=== PATIENT | male | born 1970 | race Caucasian/White ===

== ENCOUNTER 2016-06-22 12:21 | Emergency (ER) | payer OTHER ==
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
--- NOTE | 2016-06-30 01:57 | ED MAR SUMMARY ---
..... Medication Administration Record [facility] [address] [place], [place] [id number] Patient: JALEEL MONTOYA Visit ID: [id number] 46y, M Weight: 99.7 kg Height/Length: 72 in BMI: 29.8 ALLERGIES: No Known Drug Allergy
--- NOTE | 2016-06-30 01:57 | ED MAR SUMMARY ---
..... Medication Administration Record [facility] [address] [place], [place] [id number] Patient: JALEEL MONTOYA Visit ID: [id number] 46y, M Weight: 99.7 kg Height/Length: 72 in BMI: 29.8 ALLERGIES: No Known Drug Allergy
--- NOTE | 2016-06-30 01:57 | ED DISCHARGE INSTRUCTIONS ---
Patient: JALEEL MONTOYA General Instructions [facility] VisitID: [id number] [address], [place] [address] 46y, M Registration Date/Time: 06/22/2016 Chronic traumatic back pain. INSTRUCTIONS No driving or operating machinery while taking medication. No strenuous activity. Warnings: GENERAL WARNINGS: Return or contact your physician immediately if your condition worsens or changes unexpectedly, if not improving as expected, or if other problems arise. Prescription Medications: Ultram 50 mg: take 1-2 orally every 6 hours as needed for pain. Dispense five (5). Substitution is permissible. Follow-up: Follow up with your doctor internal specialist tomorrow. Call for the next available appointment. Understanding of the discharge instructions verbalized by patient and family. Follow-up with: [facility], , , [address], , [place], [address] Follow up in three days. Call for an appointment. ADDITIONAL INFORMATION Back Pain [Acute Or Chronic] Back pain is usually caused by an injury to the muscles or ligaments of the spine. Sometimes the disks that separate each bone in the spine may bulge and cause pain by pressing on a nearby nerve. Back pain may also appear after a sudden twisting/bending force (such as in a car accident), after a simple awkward movement, or lifting something heavy with poor body positioning. In either case, muscle spasm is often present and adds to the pain. Acute back pain usually gets better in one to two weeks. Back pain related to disk disease, arthritis in the spinal joints or spinal stenosis (narrowing of the spinal canal) can become chronic and last for months or years. Unless you had a physical injury (for example, a car accident or fall) X-rays are usually not ordered for the initial evaluation of back pain. If pain continues and does not respond to medical treatment, x-rays and other tests may be performed at a later time. Home Care: You may need to stay in bed the first few days. But, as soon as possible, begin sitting or walking to avoid problems with prolonged bed rest (muscle weakness, worsening back stiffness and pain, blood clots in the legs). When in bed, try to find a position of comfort. A firm mattress is best. Try lying flat on your back with pillows under your knees. You can also try lying on your side with your knees bent up towards your chest and a pillow between your knees. Avoid prolonged sitting. This puts more stress on the lower back than standing or walking. During the first two days after injury, apply an ICE PACK to the painful area for 20 minutes every 2-4 hours. This will reduce swelling and pain. HEAT (hot shower, hot bath or heating pad) works well for muscle spasm. You can start with ice, then switch to heat after two days. Some patients feel best alternating ice and heat treatments. Use the one method that feels the best to you. You may use acetaminophen (Tylenol) or ibuprofen (Motrin, Advil) to control pain, unless another pain medicine was prescribed. [NOTE: If you have chronic liver or kidney disease or ever had a stomach ulcer or GI bleeding, talk with your doctor before using these medicines.] Be aware of safe lifting methods and do not lift anything over 15 pounds until all the pain is gone. Follow Up with your doctor or this facility if your symptoms do not start to improve after one week. Physical therapy may be needed. [NOTE: If X-rays were taken, they will be reviewed by a radiologist. You will be notified of any new findings that may affect your care.] Get Prompt Medical Attention if any of the following occur: Pain becomes worse or spreads to your legs Weakness or numbness in one or both legs Loss of bowel or bladder control Numbness in the groin or genital area You have been given the following additional information: Back Pain (Acute Or Chronic) No driving or operating machinery while taking medication. No strenuous activity. (Electronically signed by Arpan Brown MD 06/30/2016 1:57)
--- NOTE | 2016-06-30 01:57 | ED MED RECONCILIATION SUMMARY ---
Patient: JALEEL MONTOYA Medication Reconciliation Report [facility] VisitID: [id number] [address] [place] [address] 46y, M Registration Date/Time: 06/22/2016 Weight: 99.7 kg Height/Length: 72 in. BMI: 29.8 ALLERGIES: No Known Drug Allergy The patient's Home Medications are listed below: Not obtained. The source(s) of the original Home Medication information: patient The following Medications were given to the patient in the Emergency Department: None. The following Medications were prescribed to the patient: Ultram 50 mg: take 1-2 orally every 6 hours as needed for pain. Dispense five (5). Substitution is permissible. -- Arpan Brown MD
--- NOTE | 2016-06-30 01:57 | ED DISCHARGE INSTRUCTIONS ---
Patient: JALEEL MONTOYA General Instructions [facility] VisitID: [id number] [address], [place] [address] 46y, M Registration Date/Time: 06/22/2016 Chronic traumatic back pain. INSTRUCTIONS No driving or operating machinery while taking medication. No strenuous activity. Warnings: GENERAL WARNINGS: Return or contact your physician immediately if your condition worsens or changes unexpectedly, if not improving as expected, or if other problems arise. Prescription Medications: Ultram 50 mg: take 1-2 orally every 6 hours as needed for pain. Dispense five (5). Substitution is permissible. Follow-up: Follow up with your doctor television specialist tomorrow. Call for the next available appointment. Understanding of the discharge instructions verbalized by patient and family. Follow-up with: [facility], , , [address], , [place], [address] Follow up in three days. Call for an appointment. ADDITIONAL INFORMATION Back Pain [Acute Or Chronic] Back pain is usually caused by an injury to the muscles or ligaments of the spine. Sometimes the disks that separate each bone in the spine may bulge and cause pain by pressing on a nearby nerve. Back pain may also appear after a sudden twisting/bending force (such as in a car accident), after a simple awkward movement, or lifting something heavy with poor body positioning. In either case, muscle spasm is often present and adds to the pain. Acute back pain usually gets better in one to two weeks. Back pain related to disk disease, arthritis in the spinal joints or spinal stenosis (narrowing of the spinal canal) can become chronic and last for months or years. Unless you had a physical injury (for example, a car accident or fall) X-rays are usually not ordered for the initial evaluation of back pain. If pain continues and does not respond to medical treatment, x-rays and other tests may be performed at a later time. Home Care: You may need to stay in bed the first few days. But, as soon as possible, begin sitting or walking to avoid problems with prolonged bed rest (muscle weakness, worsening back stiffness and pain, blood clots in the legs). When in bed, try to find a position of comfort. A firm mattress is best. Try lying flat on your back with pillows under your knees. You can also try lying on your side with your knees bent up towards your chest and a pillow between your knees. Avoid prolonged sitting. This puts more stress on the lower back than standing or walking. During the first two days after injury, apply an ICE PACK to the painful area for 20 minutes every 2-4 hours. This will reduce swelling and pain. HEAT (hot shower, hot bath or heating pad) works well for muscle spasm. You can start with ice, then switch to heat after two days. Some patients feel best alternating ice and heat treatments. Use the one method that feels the best to you. You may use acetaminophen (Tylenol) or ibuprofen (Motrin, Advil) to control pain, unless another pain medicine was prescribed. [NOTE: If you have chronic liver or kidney disease or ever had a stomach ulcer or GI bleeding, talk with your doctor before using these medicines.] Be aware of safe lifting methods and do not lift anything over 15 pounds until all the pain is gone. Follow Up with your doctor or this facility if your symptoms do not start to improve after one week. Physical therapy may be needed. [NOTE: If X-rays were taken, they will be reviewed by a radiologist. You will be notified of any new findings that may affect your care.] Get Prompt Medical Attention if any of the following occur: Pain becomes worse or spreads to your legs Weakness or numbness in one or both legs Loss of bowel or bladder control Numbness in the groin or genital area You have been given the following additional information: Back Pain (Acute Or Chronic) No driving or operating machinery while taking medication. No strenuous activity. (Electronically signed by Arpan Brown MD 06/30/2016 1:57)
--- NOTE | 2016-06-30 01:57 | ED MED RECONCILIATION SUMMARY ---
Patient: JALEEL MONTOYA Medication Reconciliation Report [facility] VisitID: [id number] [address] [place] [address] 46y, M Registration Date/Time: 06/22/2016 Weight: 99.7 kg Height/Length: 72 in. BMI: 29.8 ALLERGIES: No Known Drug Allergy The patient's Home Medications are listed below: Not obtained. The source(s) of the original Home Medication information: patient The following Medications were given to the patient in the Emergency Department: None. The following Medications were prescribed to the patient: Ultram 50 mg: take 1-2 orally every 6 hours as needed for pain. Dispense five (5). Substitution is permissible. -- Arpan Brown MD
== END 2016-06-22 13:26 | disposition home or self-care (01) ==
LOC: ED SRH 12:21
DX: M54.5 Low back pain (principal); G89.21 Chronic pain due to trauma; F17.210 Nicotine dependence, cigarettes, uncomplicated

== ENCOUNTER 2016-12-06 19:35 | Emergency (ER) | payer SELFPAY ==
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
--- NOTE | 2016-12-06 21:56 | ED ORDER SUMMARY ---
..... Patient: JALEEL MONTOYA OrderSheet [facility] VisitID: [id number] [address] [place] [address] 46y, M Registration Date/Time: 12/06/2016 ORDER SHEET Weight: 99.7 kg (stated) Allergies: No Known Drug Allergy GENERAL ORDERS: Shoulder 2V or more Left Urgent (19:58 12/06/2016 Naveed Miner) (Ack 20:04 IJurca ER Tech1) (20:25 MCampbell) Finger Right (1st) Urgent (19:59 12/06/2016 Naveed Miner) (Ack 20:04 IJurca ER Tech1) (20:25 MCampbell) Sling - arm (21:56 12/06/2016 Naveed Miner) (Ack 21:58 IJurca ER Tech1) Splint (UE) (Right) (Thumb Spica) (21:57 12/06/2016 Naveed Miner) (Ack 21:58 IJurca ER Tech1) MEDICATION ORDERS: Morphine IM 4 mg (HIGH ALERT MEDICATION, NOW) (19:58 12/06/2016 Naveed Miner) (Ack 19:59 Bambi R.N.) (20:07 Bambi R.N.) Tdap IM 0.5 mL (NOW, per protocol) (19:59 12/06/2016 Naveed Miner) (Ack 19:59 Bambi R.N.) (20:03 Bambi R.N.) Famotidine PO 40 mg (NOW) (21:02 12/06/2016 Naveed Miner) (Ack 21:03 Bambi R.N.) (21:06 Bambi R.N.) IV FLUIDS: ORDER SHEET NOTES: [Electronically signed by Narinder Morillo R.N. (22:35 12/06/2016)] [Electronically signed by Steve Dodge Dr. (00:30 12/08/2016)] [Electronically locked/signed by Narinder Morillo R.N. (22:35 12/06/2016)]
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
--- NOTE | 2016-12-06 21:56 | ED ORDER SUMMARY ---
..... Patient: JALEEL MONTOYA OrderSheet [facility] VisitID: [id number] [address] [place] [address] 46y, M Registration Date/Time: 12/06/2016 ORDER SHEET Weight: 99.7 kg (stated) Allergies: No Known Drug Allergy GENERAL ORDERS: Shoulder 2V or more Left Urgent (19:58 12/06/2016 Naveed Miner) (Ack 20:04 IJurca ER Tech1) (20:25 MCampbell) Finger Right (1st) Urgent (19:59 12/06/2016 Naveed Miner) (Ack 20:04 IJurca ER Tech1) (20:25 MCampbell) Sling - arm (21:56 12/06/2016 Naveed Miner) (Ack 21:58 IJurca ER Tech1) Splint (UE) (Right) (Thumb Spica) (21:57 12/06/2016 Naveed Miner) (Ack 21:58 IJurca ER Tech1) MEDICATION ORDERS: Morphine IM 4 mg (HIGH ALERT MEDICATION, NOW) (19:58 12/06/2016 Naveed Miner) (Ack 19:59 Bambi R.N.) (20:07 Bambi R.N.) Tdap IM 0.5 mL (NOW, per protocol) (19:59 12/06/2016 Naveed Miner) (Ack 19:59 Bambi R.N.) (20:03 Bambi R.N.) Famotidine PO 40 mg (NOW) (21:02 12/06/2016 Naveed Miner) (Ack 21:03 Bambi R.N.) (21:06 Bambi R.N.) IV FLUIDS: ORDER SHEET NOTES: [Electronically signed by Narinder Morillo R.N. (22:35 12/06/2016)] [Electronically signed by Steve Dodge Dr. (00:30 12/08/2016)] [Electronically locked/signed by Narinder Morillo R.N. (22:35 12/06/2016)]
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
--- NOTE | 2016-12-08 00:31 | ED MAR SUMMARY ---
..... Medication Administration Record [facility] [address] [place] [address] Patient: JALEEL MONTOYA Visit ID: [id number] 46y, M Weight: 99.7 kg Height/Length: 72 in BMI: 29.8 ALLERGIES: No Known Drug Allergy Given 20:03 12/06/2016 Narinder Morillo R.N. Medication Administered: TDAP [IM], Dose: 0.5 mL IM. Medication Ordered: Tdap IM 0.5 mL (NOW, per protocol). Given 20:12/06/2016 Narinder Morillo R.NEddie Medication Administered: MORPHINE [IM] (MORPHINE SULFATE (PF)), Dose: 4 mg IM. Medication Ordered: Morphine IM 4 mg (HIGH ALERT MEDICATION, NOW). Given 21:06 12/06/2016 Narinder Morillo REddieNEddie Medication Administered: FAMOTIDINE [PO], Dose: 40 mg Tablets PO. Medication Ordered: Famotidine PO 40 mg (NOW).
--- NOTE | 2016-12-08 00:31 | ED DISCHARGE INSTRUCTIONS ---
Patient: JALEEL MONTOYA General Instructions [facility] VisitID: [id number] [address] [place] [address] 46y, M Registration Date/Time: 12/06/2016 Closed nondisplaced proximal and distal phalanx fracture of the right thumb. Single contusion with abrasion to the left shoulder. INSTRUCTIONS Limit use of your right hand until released. Do not work until released. Your Current Medications: CONTINUE TAKING THE FOLLOWING MEDICATIONS: None*. Prescription Medications: Hydrocodone/APAP 5mg / 325mg: take 1-2 orally every 6 hours as needed for pain. Dispense fifteen (15). No refill. Follow-up: Screening today revealed the patient's blood pressure to be in the pre-hypertensive range. The patient should follow up with a primary care provider for blood pressure management. Follow-up with: [facility], , [address], , [place], [address] Follow up in about one day. Call for an appointment. ADDITIONAL INFORMATION Contusion,Soft Tissue You have a CONTUSION, which is a bruise with swelling and some bleeding under the skin. There are no broken bones. This injury takes a few days to a few weeks to heal. Home Care: 1) Keep the injured part elevated to reduce pain and swelling. This is especially important during the first 48 hours. 2) Make an ice pack (ice cubes in a plastic bag, wrapped in a towel) and apply for 20 minutes every 1-2 hours the first day. Continue this 3-4 times a day until the pain and swelling goes away. 3) You may use acetaminophen (Tylenol) or ibuprofen (Motrin, Advil) to control pain, unless another pain medicine was prescribed. [ NOTE : If you have chronic liver or kidney disease or ever had a stomach ulcer or GI bleeding, talk with your doctor before using these medicines.] Follow Up with your doctor or this facility if you are not improving within the next THREE days. [NOTE: If X-rays were taken, they will be reviewed by a radiologist. You will be notified of any new findings that may affect your care.] Get Prompt Medical Attention if any of the following occur: -- Pain or swelling increases -- Injured arm or leg becomes cold, blue, numb or tingly -- Redness, warmth or drainage from the skin Fracture:Thumb [Closed] You have fractured (broken) your thumb. This causes local pain, swelling and sometimes bruising. This injury will take about four weeks to heal. Thumb fractures may be treated with a splint or cast. This protects the thumb and holds the bone in place while it heals. More serious fractures may require surgery. If the thumb nail has been severely injured, it may fall off in 1-2 weeks. A new thumb nail will usually start to grow back within a month. Home Care: 1) Keep your arm elevated to reduce pain and swelling. When sitting or lying down elevate your arm above the level of your heart. You can do this by placing your arm on a pillow that rests on your chest or on a pillow at your side. This is most important during the first 48 hours after injury. 2) Apply an ice pack (ice cubes in a plastic bag, wrapped in a towel) over the injured area for 20 minutes every 1-2 hours the first day. Continue with ice packs 3-4 times a day for the next two days, then as needed for the relief of pain and swelling. 3) If a SPLINT was applied, leave this in place for the time advised. This will prevent the bones from moving out of position. 4) Keep the cast/splint completely dry at all times. Bathe with your cast/splint out of the water, protected with a large plastic bag, rubber-banded at the top end. If a fiberglass cast/splint gets wet, you can dry it with a hair-dryer. 5) You may use acetaminophen (Tylenol) or ibuprofen (Motrin, Advil) to control pain, unless another pain medicine was prescribed. [ NOTE : If you have chronic liver or kidney disease or ever had a stomach ulcer or GI bleeding, talk with your doctor before using these medicines.] Follow Up with your doctor in one week, or as advised by our staff, to be sure the bone is healing properly. Talk to your doctor about when it is safe to return to sports or work activity. [NOTE: Any X-rays taken will be reviewed by a radiologist. You will be notified of any new findings that may affect your care.] Get Prompt Medical Attention if any of the following occur: -- The plaster cast or splint becomes wet or soft -- The fiberglass cast or splint remains wet for more than 24 hours -- Pain or swelling increases -- Redness or warmth in the hand -- Fingers or hand become cold, blue, numb or tingly Hydrocodone Bitartrate, Acetaminophen Oral tablet What is this medicine? ACETAMINOPHEN; HYDROCODONE (a set a NADEEM christina fen; jesse droe KOE done) is a pain reliever. It is used to treat mild to moderate pain. How should I use this medicine? Take this medicine by mouth. Swallow it with a full glass of water. Follow the directions on the prescription label. If the medicine upsets your stomach, take the medicine with food or milk. Do not take more than you are told to take. Talk to your data reduction technician regarding the use of this medicine in children. This medicine is not approved for use in children. What side effects may I notice from receiving this medicine? Side effects that you should report to your doctor or health pulmonary care nurse as soon as possible: allergic reactions like skin rash, itching or hives, swelling of the face, lips, or tongue breathing problems confusion feeling faint or lightheaded, falls stomach pain yellowing of the eyes or skin Side effects that usually do not require medical attention (report to your doctor or health pulmonary care nurse if they continue or are bothersome): nausea, vomiting stomach upset What may interact with this medicine? alcohol antihistamines isoniazid medicines for depression, anxiety, or psychotic disturbances medicines for sleep muscle relaxants naltrexone narcotic medicines (opiates) for pain phenobarbital ritonavir tramadol What if I miss a dose? If you miss a dose, take it as soon as you can. If it is almost time for your next dose, take only that dose. Do not take double or extra doses. Where should I keep my medicine? Keep out of the reach of children. This medicine can be abused. Keep your medicine in a safe place to protect it from theft. Do not share this medicine with anyone. Selling or giving away this medicine is dangerous and against the law. Store at room temperature between 15 and 30 degrees C (59 and 86 degrees F). Protect from light. Keep container tightly closed. Throw away any unused medicine after the expiration date. Discard unused medicine and used packaging carefully. Pets and children can be harmed if they find used or lost packages. What should I tell my health care provider before I take this medicine? They need to know if you have any of these conditions: brain tumor Crohn's disease, inflammatory bowel disease, or ulcerative colitis drink more than 3 alcohol-containing drinks per day drug abuse or addiction head injury heart or circulation problems kidney disease or problems going to the bathroom liver disease lung disease, asthma, or breathing problems an unusual or allergic reaction to acetaminophen, hydrocodone, other opioid analgesics, other medicines, foods, dyes, or preservatives or trying to get breast-feeding What should I watch for while using this medicine? Tell your doctor or health pulmonary care nurse if your pain does not go away, if it gets worse, or if you have new or a different type of pain. You may develop tolerance to the medicine. Tolerance means that you will need a higher dose of the medicine for pain relief. Tolerance is normal and is expected if you take the medicine for a long time. Do not suddenly stop taking your medicine because you may develop a severe reaction. Your body becomes used to the medicine. This does NOT mean you are addicted. Addiction is a behavior related to getting and using a drug for a non-medical reason. If you have pain, you have a medical reason to take pain medicine. Your doctor will tell you how much medicine to take. If your doctor wants you to stop the medicine, the dose will be slowly lowered over time to avoid any side effects. You may get drowsy or dizzy when you first start taking the medicine or change doses. Do not drive, use machinery, or do anything that may be dangerous until you know how the medicine affects you. Stand or sit up slowly. There are different types of narcotic medicines (opiates) for pain. If you take more than one type at the same time, you may have more side effects. Give your health care provider a list of all medicines you use. Your doctor will tell you how much medicine to take. Do not take more medicine than directed. Call emergency for help if you have problems breathing. The medicine will cause constipation. Try to have a bowel movement at least every 2 to 3 days. If you do not have a bowel movement for 3 days, call your doctor or health pulmonary care nurse. Too much acetaminophen can be very dangerous. Do not take Tylenol (acetaminophen) or medicines that contain acetaminophen with this medicine. Many non-prescription medicines contain acetaminophen. Always read the labels carefully. You have been given the following additional information: Contusion, Soft Tissue Fracture, Thumb Hydrocodone Bitartrate, Acetaminophen Oral tablet Limit use of your right hand until released. Do not work until released. (Electronically signed by Steve Dodge Dr. 12/08/2016 0:30)
--- NOTE | 2016-12-08 00:31 | ED DISCHARGE INSTRUCTIONS ---
Patient: JALEEL MONTOYA General Instructions [facility] VisitID: [id number] [address] [place] [address] 46y, M Registration Date/Time: 12/06/2016 Closed nondisplaced proximal and distal phalanx fracture of the right thumb. Single contusion with abrasion to the left shoulder. INSTRUCTIONS Limit use of your right hand until released. Do not work until released. Your Current Medications: CONTINUE TAKING THE FOLLOWING MEDICATIONS: None*. Prescription Medications: Hydrocodone/APAP 5mg / 325mg: take 1-2 orally every 6 hours as needed for pain. Dispense fifteen (15). No refill. Follow-up: Screening today revealed the patient's blood pressure to be in the pre-hypertensive range. The patient should follow up with a primary care provider for blood pressure management. Follow-up with: [facility], , [address], , [place], [address] Follow up in about one day. Call for an appointment. ADDITIONAL INFORMATION Contusion,Soft Tissue You have a CONTUSION, which is a bruise with swelling and some bleeding under the skin. There are no broken bones. This injury takes a few days to a few weeks to heal. Home Care: 1) Keep the injured part elevated to reduce pain and swelling. This is especially important during the first 48 hours. 2) Make an ice pack (ice cubes in a plastic bag, wrapped in a towel) and apply for 20 minutes every 1-2 hours the first day. Continue this 3-4 times a day until the pain and swelling goes away. 3) You may use acetaminophen (Tylenol) or ibuprofen (Motrin, Advil) to control pain, unless another pain medicine was prescribed. [ NOTE : If you have chronic liver or kidney disease or ever had a stomach ulcer or GI bleeding, talk with your doctor before using these medicines.] Follow Up with your doctor or this facility if you are not improving within the next THREE days. [NOTE: If X-rays were taken, they will be reviewed by a radiologist. You will be notified of any new findings that may affect your care.] Get Prompt Medical Attention if any of the following occur: -- Pain or swelling increases -- Injured arm or leg becomes cold, blue, numb or tingly -- Redness, warmth or drainage from the skin Fracture:Thumb [Closed] You have fractured (broken) your thumb. This causes local pain, swelling and sometimes bruising. This injury will take about four weeks to heal. Thumb fractures may be treated with a splint or cast. This protects the thumb and holds the bone in place while it heals. More serious fractures may require surgery. If the thumb nail has been severely injured, it may fall off in 1-2 weeks. A new thumb nail will usually start to grow back within a month. Home Care: 1) Keep your arm elevated to reduce pain and swelling. When sitting or lying down elevate your arm above the level of your heart. You can do this by placing your arm on a pillow that rests on your chest or on a pillow at your side. This is most important during the first 48 hours after injury. 2) Apply an ice pack (ice cubes in a plastic bag, wrapped in a towel) over the injured area for 20 minutes every 1-2 hours the first day. Continue with ice packs 3-4 times a day for the next two days, then as needed for the relief of pain and swelling. 3) If a SPLINT was applied, leave this in place for the time advised. This will prevent the bones from moving out of position. 4) Keep the cast/splint completely dry at all times. Bathe with your cast/splint out of the water, protected with a large plastic bag, rubber-banded at the top end. If a fiberglass cast/splint gets wet, you can dry it with a hair-dryer. 5) You may use acetaminophen (Tylenol) or ibuprofen (Motrin, Advil) to control pain, unless another pain medicine was prescribed. [ NOTE : If you have chronic liver or kidney disease or ever had a stomach ulcer or GI bleeding, talk with your doctor before using these medicines.] Follow Up with your doctor in one week, or as advised by our staff, to be sure the bone is healing properly. Talk to your doctor about when it is safe to return to sports or work activity. [NOTE: Any X-rays taken will be reviewed by a radiologist. You will be notified of any new findings that may affect your care.] Get Prompt Medical Attention if any of the following occur: -- The plaster cast or splint becomes wet or soft -- The fiberglass cast or splint remains wet for more than 24 hours -- Pain or swelling increases -- Redness or warmth in the hand -- Fingers or hand become cold, blue, numb or tingly Hydrocodone Bitartrate, Acetaminophen Oral tablet What is this medicine? ACETAMINOPHEN; HYDROCODONE (a set a NADEEM christina fen; jesse droe KOE done) is a pain reliever. It is used to treat mild to moderate pain. How should I use this medicine? Take this medicine by mouth. Swallow it with a full glass of water. Follow the directions on the prescription label. If the medicine upsets your stomach, take the medicine with food or milk. Do not take more than you are told to take. Talk to your returned goods repairer regarding the use of this medicine in children. This medicine is not approved for use in children. What side effects may I notice from receiving this medicine? Side effects that you should report to your doctor or health spiritual care coordinator as soon as possible: allergic reactions like skin rash, itching or hives, swelling of the face, lips, or tongue breathing problems confusion feeling faint or lightheaded, falls stomach pain yellowing of the eyes or skin Side effects that usually do not require medical attention (report to your doctor or health spiritual care coordinator if they continue or are bothersome): nausea, vomiting stomach upset What may interact with this medicine? alcohol antihistamines isoniazid medicines for depression, anxiety, or psychotic disturbances medicines for sleep muscle relaxants naltrexone narcotic medicines (opiates) for pain phenobarbital ritonavir tramadol What if I miss a dose? If you miss a dose, take it as soon as you can. If it is almost time for your next dose, take only that dose. Do not take double or extra doses. Where should I keep my medicine? Keep out of the reach of children. This medicine can be abused. Keep your medicine in a safe place to protect it from theft. Do not share this medicine with anyone. Selling or giving away this medicine is dangerous and against the law. Store at room temperature between 15 and 30 degrees C (59 and 86 degrees F). Protect from light. Keep container tightly closed. Throw away any unused medicine after the expiration date. Discard unused medicine and used packaging carefully. Pets and children can be harmed if they find used or lost packages. What should I tell my health care provider before I take this medicine? They need to know if you have any of these conditions: brain tumor Crohn's disease, inflammatory bowel disease, or ulcerative colitis drink more than 3 alcohol-containing drinks per day drug abuse or addiction head injury heart or circulation problems kidney disease or problems going to the bathroom liver disease lung disease, asthma, or breathing problems an unusual or allergic reaction to acetaminophen, hydrocodone, other opioid analgesics, other medicines, foods, dyes, or preservatives or trying to get breast-feeding What should I watch for while using this medicine? Tell your doctor or health spiritual care coordinator if your pain does not go away, if it gets worse, or if you have new or a different type of pain. You may develop tolerance to the medicine. Tolerance means that you will need a higher dose of the medicine for pain relief. Tolerance is normal and is expected if you take the medicine for a long time. Do not suddenly stop taking your medicine because you may develop a severe reaction. Your body becomes used to the medicine. This does NOT mean you are addicted. Addiction is a behavior related to getting and using a drug for a non-medical reason. If you have pain, you have a medical reason to take pain medicine. Your doctor will tell you how much medicine to take. If your doctor wants you to stop the medicine, the dose will be slowly lowered over time to avoid any side effects. You may get drowsy or dizzy when you first start taking the medicine or change doses. Do not drive, use machinery, or do anything that may be dangerous until you know how the medicine affects you. Stand or sit up slowly. There are different types of narcotic medicines (opiates) for pain. If you take more than one type at the same time, you may have more side effects. Give your health care provider a list of all medicines you use. Your doctor will tell you how much medicine to take. Do not take more medicine than directed. Call emergency for help if you have problems breathing. The medicine will cause constipation. Try to have a bowel movement at least every 2 to 3 days. If you do not have a bowel movement for 3 days, call your doctor or health spiritual care coordinator. Too much acetaminophen can be very dangerous. Do not take Tylenol (acetaminophen) or medicines that contain acetaminophen with this medicine. Many non-prescription medicines contain acetaminophen. Always read the labels carefully. You have been given the following additional information: Contusion, Soft Tissue Fracture, Thumb Hydrocodone Bitartrate, Acetaminophen Oral tablet Limit use of your right hand until released. Do not work until released. (Electronically signed by Steve Dodge Dr. 12/08/2016 0:30)
--- NOTE | 2016-12-08 00:31 | ED MAR SUMMARY ---
..... Medication Administration Record [facility] [address] [place] [address] Patient: JALEEL MONTOYA Visit ID: [id number] 46y, M Weight: 99.7 kg Height/Length: 72 in BMI: 29.8 ALLERGIES: No Known Drug Allergy Given 20:03 12/06/2016 Narinder Morillo R.N. Medication Administered: TDAP [IM], Dose: 0.5 mL IM. Medication Ordered: Tdap IM 0.5 mL (NOW, per protocol). Given 20:12/06/2016 Narinder Morillo R.NEddie Medication Administered: MORPHINE [IM] (MORPHINE SULFATE (PF)), Dose: 4 mg IM. Medication Ordered: Morphine IM 4 mg (HIGH ALERT MEDICATION, NOW). Given 21:06 12/06/2016 Narinder Morillo REddieNEddie Medication Administered: FAMOTIDINE [PO], Dose: 40 mg Tablets PO. Medication Ordered: Famotidine PO 40 mg (NOW).
--- NOTE | 2016-12-08 00:32 | ED MED RECONCILIATION SUMMARY ---
Patient: JALEEL MONTOYA Medication Reconciliation Report [facility] VisitID: [id number] [address] [place] [address] 46y, M Registration Date/Time: 12/06/2016 Weight: 99.7 kg Height/Length: 72 in. BMI: 29.8 ALLERGIES: No Known Drug Allergy The patient's Home Medications are listed below: NONE. The source(s) of the original Home Medication information: Not obtained. The following Medications were given to the patient in the Emergency Department: TDAP [IM] IM 0.5 mL, administered: 12/06/2016 8:03:00 PM Morphine [IM] IM 4 mg, administered: 12/06/2016 8:07:00 PM Famotidine [PO] PO 40 mg, administered: 12/06/2016 9:06:00 PM The following Medications were prescribed to the patient: Hydrocodone/APAP 5mg / 325mg: take 1-2 orally every 6 hours as needed for pain. Dispense fifteen (15). No refill. -- Steve Dodge Dr.
--- NOTE | 2016-12-08 00:32 | ED MED RECONCILIATION SUMMARY ---
Patient: JALEEL MONTOYA Medication Reconciliation Report [facility] VisitID: [id number] [address] [place] [address] 46y, M Registration Date/Time: 12/06/2016 Weight: 99.7 kg Height/Length: 72 in. BMI: 29.8 ALLERGIES: No Known Drug Allergy The patient's Home Medications are listed below: NONE. The source(s) of the original Home Medication information: Not obtained. The following Medications were given to the patient in the Emergency Department: TDAP [IM] IM 0.5 mL, administered: 12/06/2016 8:03:00 PM Morphine [IM] IM 4 mg, administered: 12/06/2016 8:07:00 PM Famotidine [PO] PO 40 mg, administered: 12/06/2016 9:06:00 PM The following Medications were prescribed to the patient: Hydrocodone/APAP 5mg / 325mg: take 1-2 orally every 6 hours as needed for pain. Dispense fifteen (15). No refill. -- Steve Dodge Dr.
== END 2016-12-06 22:31 | disposition home or self-care (01) ==
LOC: ED SRH 19:35
DX: S62.524A Nondisplaced fracture of distal phalanx of right thumb, initial encounter for closed fracture (principal); S40.012A Contusion of left shoulder, initial encounter; V86.59XA Driver of other special all-terrain or other off-road motor vehicle injured in nontraffic accident, initial encounter; Y93.I9 Activity, other involving external motion; Y99.9 Unspecified external cause status; Y92.830 Public park as the place of occurrence of the external cause; F17.200 Nicotine dependence, unspecified, uncomplicated; Z23 Encounter for immunization